=== PATIENT | female | born 1995 | race Two or more races ===

== ENCOUNTER 2024-10-13 12:30 | Emergency (ER) | payer SELFPAY ==
[2024-10-13 12:48] VITALS: BMI 28.4
[2024-10-13 15:03] LABS: ABSOLUTE IMMATURE GRANULOCYTES 0.12 x10^3/uL (0.0-0.031); BASOPHILS # 0.02 x10^3/uL (0.01-0.08); EOSINOPHIL % 0.2 % (0.7-5.8); EOSINOPHILS # 0.02 x10^3/uL (0.04-0.36); MCHC 33.3 g/dl (32.2-35.5); MEAN CELL VOLUME 88.2 fl (79.4-94.8); MONOCYTE # 0.63 x10^3/uL (0.24-0.86); MONOCYTE % 6.8 % (4.7-12.5); PLATELET COUNT 271 x10^3/uL (182-369); RDW 13.2 % (12.1-16.8)
[2024-10-13 15:07] LABS: EPI CELLS >36 /uL (0-25.1); HYALINE CASTS 1 /uL (0-3.1); PH,URINE 7.5 (5.0-8.0); URINE APPEARANCE CLOUDY; URINE BACTERIA 1170 /uL (0-1359); URINE BILIRUBIN NEGATIVE (NEGATIVE); URINE COLOR YELLOW; URINE GLUCOSE (UA) NEGATIVE (NEGATIVE); URINE KETONE NEGATIVE (NEGATIVE); URINE LEUK ESTERASE 3+ (NEGATIVE); URINE NITRITE NEGATIVE (NEGATIVE); URINE PROTEIN NEGATIVE (NEGATIVE); URINE UROBILINOGEN 0.2 mg/dL (0.2-1.0); URINE WBC 185 /uL (0-25.8)
[2024-10-13 15:12] LABS: INR 1.01 (0.83-1.09); PROTHROMBIN TIME (PATIENT) 11.1 SEC (9.7-13.0)
[2024-10-13 15:15] LABS: ACTIVATED PTT 27.5 SECONDS (25.2-36.5)
[2024-10-13 15:16] VITALS: BP 108/68; PULSE 68; RESP 20; TEMP 97.9
[2024-10-13 15:19] LABS: POTASSIUM 3.8 mmol/L (3.5-5.1)
[2024-10-13 15:21] LABS: BLOOD UREA NITROGEN 4.6 mg/dL (7-18); CALCIUM 9.4 mg/dL (8.5-10.1)
[2024-10-13 15:24] LABS: CREATININE 0.4 mg/dL (0.55-1.3)
[2024-10-13 15:30] LABS: URINE RBC 47 /uL (0-23.9)
[2024-10-13 15:48] LABS: SYPHILIS W/ RPR CONF NON-REACTIVE (NONREACTIVE)
[2024-10-13 15:49] LABS: HEPATITIS B SURFACE AG MATERN NON-REACTIVE (NONREACTIVE)
[2024-10-13 16:16] LABS: HIV INTERPRETATION NEGATIVE (NEGATIVE)
[2024-10-13 16:17] LABS: HCV DIAGNOSTIC IN-HOUSE W/RFLX NON-REACTIVE (NONREACTIVE)
== END 2024-10-13 17:17 | disposition home or self-care (01) ==
LOC: JER 12:30
DX: O26.893 Other specified pregnancy related conditions, third trimester (principal); R10.30 Lower abdominal pain, unspecified; Z3A.36 36 weeks gestation of pregnancy
CPT/HCPCS: 36415; 76801-TC; 80048; 81003; 85025; 85610; 85730; 86780; 86803; 86850; 86900; 86901; 87081; 87340; 87389; 99284-25

== ENCOUNTER 2024-11-21 11:13 | Inpatient (IN) | payer OTHER ==
[2024-11-21] MEDS: LACTATED RINGERS SOLUTION 1,000 ML/1,000 ML INFUS.BAG IV SCH (12:40)
[2024-11-21 12:52] LABS: BASOPHILS # 0.02 x10^3/uL (0.01-0.08); EOSINOPHIL % 0.2 % (0.7-5.8); EOSINOPHILS # 0.02 x10^3/uL (0.04-0.36); HEMATOCRIT 33.4 % (34.1-44.9); HEMOGLOBIN 11.2 g/dL (11.2-15.7); MCHC 33.5 g/dl (32.2-35.5); MEAN CELL VOLUME 86.8 fl (79.4-94.8); MEAN PLT VOLUME 11.2 fl (9.4-12.3); MONOCYTE # 0.36 x10^3/uL (0.24-0.86); MONOCYTE % 4.4 % (4.7-12.5); PLATELET COUNT 224 x10^3/uL (182-369); RDW 13.6 % (12.1-16.8)
[2024-11-21 12:57] LABS: INR 0.98 (0.83-1.09); PROTHROMBIN TIME (PATIENT) 10.7 SEC (9.7-13.0)
[2024-11-21 12:57] LABS: METHADONE, UR NEGATIVE (NEGATIVE); URINE BARBITURATES NEGATIVE (NEGATIVE)
[2024-11-21 12:58] LABS: COCAINE, UR NEGATIVE (NEGATIVE); URINE AMPHETAMINES NEGATIVE (NEGATIVE); URINE BENZODIAZEPINES NEGATIVE (NEGATIVE)
[2024-11-21 13:00] LABS: ACTIVATED PTT 27.7 SECONDS (25.2-36.5)
[2024-11-21 13:01] VITALS: BMI 25.8
[2024-11-21 13:08] LABS: POTASSIUM 3.5 mmol/L (3.5-5.1)
[2024-11-21 13:11] LABS: BLOOD UREA NITROGEN 8.1 mg/dL (7-18); CALCIUM 9.2 mg/dL (8.5-10.1)
[2024-11-21 13:15] LABS: CREATININE 0.5 mg/dL (0.55-1.3)
[2024-11-21 13:28] LABS: PHENCYCLIDINE,URINE NEGATIVE (NEGATIVE)
[2024-11-21 13:35] LABS: OPIATES, URI NEGATIVE (NEGATIVE)
[2024-11-21] MEDS ORDERED: MISOPROSTOL 100 MCG TABLET PO ONE (14:44)
[2024-11-21] MEDS: MISOPROSTOL 25 MCG TABLET (COMPOUNDED BY PHARMACY) PO ONE (17:25)
[2024-11-21] MEDS ORDERED: OXYTOCIN 30 UNITS in 0.9% NS 30 UNIT/500 ML INFUS.BAG IVPB ONE (22:55)
[2024-11-21] MEDS: OXYTOCIN 30 UNITS in 0.9% NS 30 UNIT/500 ML INFUS.BAG IVPB SCH (23:05)
[2024-11-21] MEDS ORDERED: NALOXONE HCL 0.4 MG/ML VIAL IVPUSH PRN (23:15)
[2024-11-21] MEDS ORDERED: FENTANYL/BUPIVACAINE/NS/PF - PCEA - 50 ML DISP.SYRIN EP ONE (23:46)
[2024-11-22] MEDS: FENTANYL/BUPIVACAINE/NS/PF - PCEA - 50 ML DISP.SYRIN EP SCH (00:05)
[2024-11-22] MEDS ORDERED: FENTANYL/BUPIVACAINE/NS/PF - PCEA - 50 ML DISP.SYRIN EP ONE ×3 (02:57→08:21)
[2024-11-22] MEDS ORDERED: ONDANSETRON 4 MG/2 ML VIAL ONE (05:53)
[2024-11-22] MEDS: ONDANSETRON 4 MG/2 ML VIAL IVPB PRN (06:00)
[2024-11-22] MEDS ORDERED: SODIUM CHLORIDE 0.9% P/F 10 ML VIAL IJ ONE (08:57)
[2024-11-22] MEDS ORDERED: FENTANYL CITRATE/PF 50 MCG/ML VIAL ONE (08:57)
[2024-11-22] MEDS ORDERED: LIDOCAINE HCL/PF 2% SDV 5ML VIAL ONE (08:57)
[2024-11-22] MEDS ORDERED: LIDOCAINE HCL 1% PRESERVATIVE FREE - 30ML VIAL ONE (11:40)
[2024-11-22] MEDS ORDERED: OXYTOCIN 20 UNITS in 0.9% NS 20 UNIT/1,000 ML INFUS.BAG IV ONE (11:40)
[2024-11-22] MEDS: OXYTOCIN 20 UNITS in 0.9% NS 20 UNIT/1,000 ML INFUS.BAG IV SCH (12:09)
[2024-11-22 12:59] LABS: CORD BASE EXCESS -6.9 mmol/L (0-2); CORD HCO3 20.3 mmHg (20-29); CORD PCO2 46.5 mmHg (30-78); CORD pH 7.258 (7.14-7.44)
[2024-11-22 13:02] LABS: CORD HCO3 21.8 mmHg (20-29); CORD PCO2 57.1 mmHg (30-78); CORD pH 7.199 (7.14-7.44)
[2024-11-22] MEDS ORDERED: METHYLERGONOVINE MALEATE 0.2 MG/1 ML AMP IM PRN (13:02)
[2024-11-22] MEDS ORDERED: WITCH HAZEL 50% (TUCKS) 40 PAD/JAR PAD TP PRN (13:02)
[2024-11-22] MEDS ORDERED: ACETAMINOPHEN INJECTION 100 ML ONE (14:33)
[2024-11-22] MEDS: IBUPROFEN 600 MG TABLET (FP) PO PRN (17:22)
[2024-11-22] MEDS: BENZOCAINE 20% 57 GM BOTTLE TP PRN (17:28)
[2024-11-22] MEDS: BENZOCAINE 28 GM HEMORRHOIDAL OINTMENT TP PRN (17:28)
[2024-11-22] MEDS: oxyCODONE HCL 5 MG TABLET PO PRN (18:40)
[2024-11-22] MEDS: ACETAMINOPHEN 325 MG TABLET (FP) PO PRN (20:57)
[2024-11-22] MEDS: DOCUSATE SODIUM 100 MG CAPSULE (FP) PO PRN (21:01)
[2024-11-23] MEDS: SENNOSIDES/DOCUSATE COMBO (SENNA PLUS) TABLET (UD) PO PRN (00:55)
[2024-11-23 08:32] LABS: ABSOLUTE IMMATURE GRANULOCYTES 0.13 x10^3/uL (0.0-0.031); BASOPHILS # 0.03 x10^3/uL (0.01-0.08); EOSINOPHIL % 0.1 % (0.7-5.8); EOSINOPHILS # 0.01 x10^3/uL (0.04-0.36); HEMATOCRIT 28.8 % (34.1-44.9); HEMOGLOBIN 9.5 g/dL (11.2-15.7); MEAN CELL VOLUME 87.3 fl (79.4-94.8); MEAN PLT VOLUME 10.7 fl (9.4-12.3); MONOCYTE # 0.66 x10^3/uL (0.24-0.86); MONOCYTE % 4.4 % (4.7-12.5); PLATELET COUNT 214 x10^3/uL (182-369); RDW 13.6 % (12.1-16.8)
[2024-11-23 23:13] VITALS: RESP 18
[2024-11-24] MEDS: BISACODYL 10 MG SUPP.RECT RC PRN (09:44)
[2024-11-24 10:13] VITALS: BP 117/78; PULSE 79; TEMP 98.8
== END 2024-11-24 15:01 | disposition home or self-care (01) | DRG 560 ==
LOC: JLDR 11:13 → J3W 11-22 14:40
PROVIDERS: ADMIT Obstetrics & Gynecology; ATTEND Obstetrics & Gynecology
PROC: 10E0XZZ Delivery of Products of Conception, External Approach (ICD-10-PCS; principal; 2024-11-22)
PROC: 0W8NXZZ Division of Female Perineum, External Approach (ICD-10-PCS; 2024-11-22)
DX: O48.0 Post-term pregnancy (principal); Z3A.41 41 weeks gestation of pregnancy; Z37.0 Single live birth
CPT/HCPCS: 36415; 36600; 59409; 80048; 80307; 82803; 85025; 85610; 85730; 86780; 86850; 86900; 86901